=== PATIENT | female | born 1960 | race Caucasian/White ===

== ENCOUNTER 2018-07-01 13:30 | Outpatient (RCR) | payer SELFPAY | END 2018-07-09 23:59 | LOC: NS 13:30 | PROVIDERS: Family Provider Internal Medicine; PCP Internal Medicine | DX: R69 Illness, unspecified (principal) | CPT/HCPCS: 97802; 97803 ==

== ENCOUNTER 2018-07-29 13:58 | Outpatient (RCR) | payer SELFPAY ==
[2014-11-08 06:17] VITALS: BMI 37.2
== END 2018-08-08 23:59 ==
LOC: NS 13:58
PROVIDERS: Family Provider Internal Medicine; PCP Internal Medicine
DX: R69 Illness, unspecified (principal)
CPT/HCPCS: 97803

== ENCOUNTER 2018-08-23 16:15 | Outpatient (RCR) | payer SELFPAY ==
[2014-11-08 06:17] VITALS: BMI 37.2
== END 2018-09-08 23:59 ==
LOC: NS 16:15
PROVIDERS: Family Provider Internal Medicine; PCP Internal Medicine
DX: R69 Illness, unspecified (principal)
CPT/HCPCS: 97803

== ENCOUNTER 2018-09-28 16:00 | Outpatient (RCR) | payer SELFPAY ==
[2014-11-08 06:17] VITALS: BMI 37.2
== END 2018-10-09 23:59 ==
LOC: NS 16:00
PROVIDERS: Family Provider Internal Medicine; PCP Internal Medicine
DX: R69 Illness, unspecified (principal)
CPT/HCPCS: 97803

== ENCOUNTER 2018-10-19 13:59 | Outpatient (RCR) | payer SELFPAY ==
[2014-11-08 06:17] VITALS: BMI 37.2
== END 2018-11-08 23:59 ==
LOC: NS 13:59
PROVIDERS: Family Provider Internal Medicine; PCP Internal Medicine
DX: R69 Illness, unspecified (principal); Z71.3 Dietary counseling and surveillance
CPT/HCPCS: 97803

== ENCOUNTER 2018-12-01 16:00 | Outpatient (RCR) | payer SELFPAY ==
[2018-11-08 10:16] VITALS: BMI 37.2
== END 2018-12-01 23:59 | disposition home or self-care (01) ==
LOC: NS 16:00
PROVIDERS: Family Provider Internal Medicine; PCP Internal Medicine
DX: Z71.3 Dietary counseling and surveillance (principal); R69 Illness, unspecified
CPT/HCPCS: 97803

== ENCOUNTER → 2020-07-10 10:00 | Outpatient (CLI) | payer SELFPAY ==
[2018-11-08 10:16] VITALS: BMI 37.2
--- NOTE | 2020-07-10 10:09 | BI_ITS ---
MAMMOGRAPHY - BILATERAL SCREENING REASON FOR EXAM: Female, 59 years old. Routine annual screening examination. PERTINENT HISTORY: Non-contributory. TECHNIQUE: Digital bilateral breast grupo (3D mammographic acquisition) in the CC and MLO projections. 2-D mediolateral oblique (MLO) and craniocaudad (CC) views of both breasts were obtained. CAD: Full Field Digital Mammography with Computer Added Detection was performed. COMPARISON: Comparison is made with prior outside examination dated 08/24/2015. FINDINGS: Breast Composition: There are scattered areas of fibroglandular density. There are no dominant masses or suspicious calcifications. No other significant abnormalities are identified. There has been no significant change since the prior study. BI/SCRN MAMM (CAD)W/GRUPO BILAT IMPRESSION: Stable bilateral screening mammogram. Yearly follow-up mammogram recommended. (A) ASSESSMENT CATEGORY: BIRADS Category 1: Negative. A letter regarding these results will be sent to the patient by the facility within 30 days. Approximately 10% of breast cancers are not detected by mammography. A normal mammogram should not delay biopsy of a clinically suspicious abnormality. [id number] Electronically Signed: Erik Keyes MD at 11:26 EDT , Service support ,
== END ==
PROVIDERS: PCP Internal Medicine; Referring Provider Clinical Nurse Specialist; Visit Provider Clinical Nurse Specialist
DX: Z12.31 Encounter for screening mammogram for malignant neoplasm of breast (principal)
CPT/HCPCS: 77063; 77067

== ENCOUNTER 2021-10-30 09:35 | Emergency (ER) | payer OTHER, SELFPAY ==
[2021-10-30 09:37] VITALS: BP 158/107; PULSE 109; RESP 18; TEMP 36.6; O2SAT 100; BMI 36.3
[2021-10-30 09:43] VITALS: BP 158/107; PULSE 109; RESP 18; TEMP 36.6; O2SAT 100
--- NOTE | 2021-10-30 10:03 | EDS_ITS ---
HPI History of Present Illness Chief Complaint: Cellulitis Detail of Chief Complaint: Left thigh insect sting or bite Informant: patient Onset/Context/Timing Onset: Days Context: Gradual Onset Timing: Continuous Current Severity: Mild Maximum Severity: Mild Narrative Narrative: 61-year-old female with who states on she was going to the store and felt a bite or sting inside her pants. Kind of scratched it. The next day she realized it was slightly red and swollen consistent with an insect bite or sting. On Thursday got little worse she had a temperature of 99 7. Thursday went to the urgent care they thought it was either allergic reaction and/or infection. They started her on Keflex. It progressively got worse she was then seen a second time the urgent care and they gave her a dose of ceftriaxone and stop the prednisone and had started her on the first visit. She said she really not much better and she want another opinion. Currently she is on clindamycin. She denies any fever or chills. Said otherwise she feels fine and is not very painful. Prior similar symptoms: No Recent Illness/Hospitalization: No PFSH PFSH Medical History H/O achilles tendonitis h/o nephrolithiasis Home Medications Alavert 1 tab PO DAILY 11/03/14 [History Last Taken Unknown] Allergy/AdvReac Type Severity Reaction Status Date / Time No Known Allergies Allergy Verified 10/30/21 09:36 Family History Mother Malignant hypothermia due to anesthesia Heart disease Father Heart disease Surgical History History of lithotripsy Social History current occupational status: employed pets and animals: Yes Smoking Status: Never smoker substance use type: does not use caffeine: Yes seatbelt use: always do you feel safe at home: Yes ROS ROS ED ROS Narrative This denies recent illness. Review of Systems ROS Unobtainable: Denies due to encephalopathy Constitutional Constitutional ED: Denies chills or fever(s) Eyes Eyes: Denies blurry vision ENT ENT ED: Denies ear pain Cardiovascular Cardiovascular: Denies chest pain Respiratory/Chest Respiratory/Chest: Denies cough or dyspnea Gastrointestinal Gastrointestinal: Denies abdominal pain Genitourinary Genitourinary ED: Denies dysuria or hematuria Musculoskeletal Musculoskeletal: Denies arthralgias Integumentary Denies abscess or Abrasions Neurologic Neurologic: Denies headache(s) Psychiatric Psychiatric: Denies anxiety Endocrine Endocrinology: Denies cold intolerance Hematologic/Lymphatic Hematologic/Lymphatic: Reports none Allergic/Immunologic Allergic/Immunologic ED: Denies mouth swelling or tongue swelling EXAM Physical Exam Narrative Exam Narrative: Significant female no acute distress vital signs stable afebrile. H EENT exam unremarkable. Lungs clear. Heart regular rhythm. Abdomen soft nontender. Moving all 4 extremities. Neurovascular intact her right proximal medial thigh has an area about 5 to 6 inches in length about 3 to 4 inches in width that is oval-shaped is consistent with a local allergic reaction to an insect bite or sting. There could also be secondary cellulitis. There is no lymphadenopathy in the right groin. Its not hot. There is no abscess. There is nothing needs to be drained. It is not particularly tender. She has normal range of motion to her hip and knee. Const Vital Signs: 10/30/21 09:37 10/30/21 09:43 Temperature 97.8 F 97.8 F Temperature Source Temporal Temporal Pulse Rate 109 H 109 H Respiratory Rate 18 18 Blood Pressure 158/107 H 158/107 H Blood Pressure Mean 124 124 Pulse Ox 100 100 Oxygen Delivery Method Room Air Room Air Positive well nourished, well developed and obese; Negative for cachectic, contractures or unkempt General Appearance ED: well developed and NAD; Negative for unkempt, cachectic, contractures, cyanotic or diaphoretic Nutritional Appearance: obese; Negative for cachectic HEENT Reports moist mucous membranes Negative for trauma or tenderness Eyes PERRL and EOMs intact bilaterally General Eye ED: Negative for pale conjunctiva or scleral icterus Neck no lymphadenopathy, supple and no JVD General: Negative for tenderness Lymph Lymphatic: Negative for other Chest Wall inspection of chest normal and palpation of chest normal Resp normal respiratory effort and clear to auscultation bilaterally Effort and Inspection: Negative for retractions Auscultation: Negative for rales or rhonchi Cardio regular rate, regular rhythm, S1 normal heart sound, S2 normal heart sound and no murmurs Palpation: Negative for palpable S3 Rate: Negative for bradycardia GI normal to inspection, nondistended, normoactive bowel sounds, non-tender, non- distended and no masses Inspection: Negative for abdominal distention Auscultation: normoactive bowel sounds Palpation: soft; Negative for tender or guarding Bladder / Kidney Exam: No other Back/Spine no CVA tenderness General Back: Negative for CVA tenderness Cervical Spine: Negative for cervical spine tenderness Thoracic Spine / Upper Back: Negative for thoracic spinal tenderness Lumbar Spine / Lower Back: Negative for lumbar spinal tenderness Extremity normal to inspection Extremity Narrative: Except right thigh proximal medial aspect 4 x 6 inch area of local allergic reaction possible secondary cellulitis. No lymphadenopathy in the groin. Normal range of motion. No abscess. Not tender. This may be purely local allergic reaction and could also be secondary cellulitis. General Extremety ED: Yes edema; Negative for tenderness General Extremity: edema Neuro oriented x3 Sensorium / Orientation: alert; Negative for orientation impaired Motor Exam: strength 5/5 throughout Psych mental status grossly normal Appearance: Negative for unkempt Attitude: No agitated Mood & Affect: Negative for depressed, anxious or tearful Skin No no rashes or lesions noted and no wounds Lesions: No lesion noted Rashes: rashes noted Trauma: Negative for abrasion Wounds: Negative for wounds noted MDM MDM MDM Narrative Medical decision making narrative: DenisePatient is a local allergic reaction to some type of insect sting. Be I&D. There could be a secondary infection but there is no lymphadenopathy. There is no abscess. She is already on clindamycin which we will continue in case there is a secondary infection. Otherwise cool compresses Tylenol and Motrin and this should improve if is worsening she will return to have it reevaluated. Discharge Plan Triage Chief Complaint: Cellulitis ED Provider: Huy Gusmna Dx/Rx/DC Orders Clinical Impression: Bites and stings, insect, Cellulitis Instructions: ED Insect Bite Prescriptions: No Action Alavert 1 tab PO DAILY Primary Care Provider: Chantelle Johnson Referrals: Chantelle Johnson MD [Primary Care Provider] - As Needed Activity Restrictions/Additional Instructions: This is consistent with a local allergic reaction to either insect sting or bite. It may be secondarily infected but this could all just be from the reaction. Cool compresses and ice to the area. Tylenol and Motrin for pain. Finish the current antibiotic you are on in case there is an infection. Return if is looking a lot worse, you are feeling worse or develop a fever greater than 101. This should start improving over the next several days. Disposition Disposition: Home, Self Care
== END 2021-10-30 10:23 | disposition home or self-care (01) ==
LOC: ED 10:13
PROVIDERS: Emergency Provider Emergency Medicine; PCP Internal Medicine; Visit Provider Emergency Medicine
DX: L03.116 Cellulitis of left lower limb (principal); E66.9 Obesity, unspecified; S70.362A Insect bite (nonvenomous), left thigh, initial encounter; W57.XXXA Bitten or stung by nonvenomous insect and other nonvenomous arthropods, initial encounter
CPT/HCPCS: 99282

== ENCOUNTER → 2023-08-28 | Outpatient (CLI) | payer MEDICARE, OTHER, SELFPAY ==
--- NOTE | 2023-08-28 14:31 | BI_ITS ---
MAMMOGRAPHY - BILATERAL SCREENING REASON FOR EXAM: Female, 62 years old. Routine annual screening examination. PERTINENT HISTORY: Non-contributory. TECHNIQUE: Digital bilateral breast grupo (3D mammographic acquisition) in the CC and MLO projections. 2-D mediolateral oblique (MLO) and craniocaudad (CC) views of both breasts were obtained. CAD: Full Field Digital Mammography with Computer Added Detection was performed. COMPARISON: Comparison is made with prior study dated July 10, 2020. FINDINGS: Breast Composition: The breasts are almost entirely fatty. There are no dominant masses or suspicious calcifications. No other significant abnormalities are identified. There has been no significant change since the prior study. BI/SCRN MAMM (CAD)W/GRUPO BILAT IMPRESSION: Stable bilateral screening mammogram. Yearly follow-up mammogram recommended. (A) ASSESSMENT CATEGORY: BIRADS Category 1: Negative. A letter regarding these results will be sent to the patient by the facility within 30 days. Approximately 10% of breast cancers are not detected by mammography. A normal mammogram should not delay biopsy of a clinically suspicious abnormality. [id number] Electronically Signed: Erik Keyes MD at 8:23 EDT ,
== END | disposition home or self-care (01) ==
LOC: OPBI 14:29
PROVIDERS: PCP Internal Medicine; Referring Provider Clinical Nurse Specialist; Visit Provider Clinical Nurse Specialist
DX: Z12.31 Encounter for screening mammogram for malignant neoplasm of breast (principal)
CPT/HCPCS: 77063; 77067

== ENCOUNTER 2024-08-24 07:40 | Emergency (ER) | payer MEDICARE, OTHER, SELFPAY ==
[2024-08-24 07:41] VITALS: BP 225/111; PULSE 111; RESP 18; TEMP 36.6; O2SAT 100; BMI 36.7
--- NOTE | 2024-08-24 07:49 | ED.RN ---
Pt also has a cyst on her right flank. pt had a bandaid on it due to leakage. Pt was on an antibiotic since the 3rd.
--- NOTE | 2024-08-24 07:49 | ED.RN ---
Pt also has a cyst on her right flank. pt had a bandaid on it due to leakage. Pt was on an antibiotic since the 3rd.
--- NOTE | 2024-08-24 07:53 | ED.VIS.BACK ---
HPI History of Present Illness Chief Complaint: Flank Pain Detail of Chief Complaint: Left buttocks pain not flank pain Informant: patient Onset/Context/Timing Onset: Weeks (2 weeks ago, August 10) Context: Sudden Onset Injury: - (None) Timing: Continuous Quality: Dull and Aching Location: Buttock (Left) Current Severity: Mild Maximum Severity: Severe Worsened by: improves with Movement, Ambulation, Bending and Lifting Relieved by: Nothing Associated Symptoms Associated Symptoms: - (No saddle paresthesia or anesthesia.); Negative for Numbness, Tingling, Radiation to Right Leg, Radiation to Left Leg, Fever, Abdominal Pain, Dysuria, Unable to Ambulate, Unable to Transfer, Urinary Retention, Urinary Incontinence, Constipation or Fecal Incontinence Narrative Narrative: Patient is a 63-year-old woman. She has history of hypertension. In collaboration with her doctor she is supposed no medication since her systolic is in the mid 130s. She presents by ambulance because of worsening left buttocks pain. She denies bowel or bladder dysfunction. She denies saddle paresthesia or anesthesia. She denies pain radiating down either leg. She denies foot drop. She took meloxicam this morning. She states she was unable to walk more than a couple steps to drive herself and reason she contacted ambulance. She denies fever or chills. She denies night sweats. Denies weight gain or weight loss. She denies any recent dental procedure or any type of procedure. She was placed on an antibiotic for a right buttocks abscess that spontaneously drained. The pain is exacerbated by movement. She has no history of degenerative disc disease. She has no history of herniated disc. She has not noted a rash on the left side. She has no history of diabetes, peptic ulcer disease or renal disease other than kidney stone. She has no allergy to NSAIDs. She states she took meloxicam this morning. Prior similar symptoms: No Recent Illness/Hospitalization: Yes [facility] Medical History Kidney stones h/o nephrolithiasis H/O achilles tendonitis Home Medications ?Medication ?Instructions ?Recorded ?Last Taken ?Type Alavert 1 tab PO DAILY 11/03/14 Unknown History meloxicam 15 mg tablet 15 mg PO DAILY 08/24/24 Unknown History methocarbamol 750 mg tablet 750 mg PO TID 08/24/24 Unknown History oxycodone-acetaminophen 5 mg-325 1 tab PO Q6H PRN PRN Pain 3 days 08/24/24 Unknown Rx mg tablet #12 TABLETS Allergy/AdvReac Type Severity Reaction Status Date / Time No Known Allergies Allergy Verified 08/24/24 07:46 Family History Mother Malignant hypothermia due to anesthesia Heart disease Father Heart disease Surgical History History of lithotripsy Social History current occupational status: employed pets and animals: Yes Smoking Status: Never smoker substance use type: does not use caffeine: Yes seatbelt use: always do you feel safe at home: Yes ROS ROS ED Constitutional Constitutional ED: Denies chills, fever(s), subjective, sweats or weight loss Eyes Eyes: Denies blurry vision, change in vision or diplopia ENT ENT ED: Denies ear pain, rhinorrhea or sore throat Gastrointestinal Gastrointestinal: Denies abdominal pain, diarrhea, nausea or vomiting Genitourinary Genitourinary ED: Denies dysuria, hematuria or urinary frequency Musculoskeletal Musculoskeletal: Reports back pain; Denies arthralgias or myalgias Integumentary Reports rash Neurologic Neurologic: Denies headache(s), paresthesias or weakness Endocrine Endocrinology: Denies cold intolerance or heat intolerance Hematologic/Lymphatic Hematologic/Lymphatic: Reports other Details: Patient is on no anticoagulant or antithrombotic. ; Denies easy bleeding or easy bruising EXAM Physical Exam Const Vital Signs: 08/24/24 07:41 08/24/24 08:48 08/24/24 09:43 Temperature 97.9 F Temperature Source Oral Pulse Rate 111 H 93 93 Respiratory Rate 18 18 16 Blood Pressure 225/111 H 206/113 H 200/98 H Blood Pressure Mean 149 144 132 Pulse Ox 100 97 98 Oxygen Delivery Method Room Air Room Air Room Air Positive well nourished and well developed Constitutional Narrative: BMI is 36.7. General Appearance ED: well developed HEENT Reports moist mucous membranes HEENT Narrative: Head is atraumatic and normocephalic. Ears normal. Nares patent. Eyes PERRL and EOMs intact bilaterally General Eye ED: Negative for scleral icterus Neck no lymphadenopathy, supple and no JVD Resp normal respiratory effort and clear to auscultation bilaterally Cardio regular rate and regular rhythm GI normal to inspection, nondistended, normoactive bowel sounds, soft to palpation, non-tender and non-distended Back/Spine normal to inspection and no thoracic nor lumbar tenderness Back/Spine Narrative: Patient has pain left buttocks area near the posterior superior iliac spine. There are no skin lesions noted. The area over the right buttocks has some discoloration. There are 2 openings in the skin where the abscess apparently drained since the Band-Aid is saturated. There is no induration. There is no warmth. Thoracic Spine / Upper Back: Negative for paraspinal muscle tenderness Lumbar Spine / Lower Back: ROM limited and straight leg raise negative bilaterally Extremity normal to inspection and no clubbing, cyanosis or edema Extremity Narrative: PT and DP pulse are palpable and symmetric. Neuro oriented x3 and no sensory deficits noted Neuro Narrative: Sensation L3-S1 is intact. EHL is intact. Bilateral 5 strength dorsi and plantarflexion of her foot. Presently patient is unable to stand to assess gait. Deep Tendon Reflexes: Rt Patellar (L4): 3+, Lt Patellar (L4): 3+, Rt Ankle (S1): 3+ and Lt Ankle (S1): 3+ Deep Tendon Reflexes Back: Rt Patellar (L4): 3+, Lt Patellar (L4): 3+, Rt Ankle (S1): 3+ and Lt Ankle (S1): 3+ Plantar Reflex: Downgoing: bilateral (There is no clonus noted either.) Psych mental status grossly normal Skin no rashes or lesions noted and No no wounds Skin Narrative: Previously described regarding the abscess that spontaneously drained right buttocks. MDM MDM MDM Narrative Medical decision making narrative: Patient with markedly elevated blood pressure 225/111 with a heart rate of 111. Suspect this is due to pain. Will medicate patient and reassess. Since patient has known history of hypertension presently on no antihypertensive meds we will obtain BMP to assess renal function especially since she is on NSAID and UA to assess for proteinuria hematuria and specific gravity. Patient was medicated with morphine for her pain. History & Record Review Additional record(s) reviewed:: Prior ED visit (Last ER visit was October 2021. She was seen for insect bites and stings. She was seen in January 2019 for elevated blood pressure.) Lab Data Labs: Laboratory Results - last 24 hr 08/24/24 08/24/24 08:15 10:54 Sodium 139 Potassium 3.8 Chloride 105 Carbon Dioxide 21.8 Anion Gap 12 BUN 16 Creatinine 0.64 L Estim Creat Clear Calc 90.91 Est GFR (MDRD) Non-Af 98 BUN/Creatinine Ratio 25.2 H Glucose 115 H Calcium 9.5 Urine Color Yellow Urine Clarity Sl. Cloudy Urine pH 7.0 Ur Specific [place] 1.010 Urine Protein 30 H Urine Glucose (UA) Normal Urine Ketones Negative Urine Occult Blood 10 H Urine Nitrite Negative Urine Bilirubin Negative Urine Urobilinogen Normal Ur Leukocyte Esterase 25 H Treatment and Re-Evaluation Narrative: Patient received second dose of morphine. She was reassessed after second dose of morphine 1106. Her blood pressure still elevated but has improved. Suspect this is related to her pain. Plan is discharge to home with prescription for Percocet. All of her questions were answered. Discharge Plan Triage Chief Complaint: Flank Pain ED Provider: Payam Murray Dx/Rx/DC Orders Clinical Impression: Pain of back and left lower extremity, Elevated blood pressure reading with diagnosis of hypertension, Hematuria with proteinuria Instructions: ED Back and Neck Pain, General Prescriptions: New oxycodone-acetaminophen 5-325 mg tablet 1 tab PO Q6H PRN PRN (Reason: Pain) 3 Days Qty: 12 0RF No Action Alavert 1 tab PO DAILY meloxicam 15 mg tablet 15 mg PO DAILY methocarbamol 750 mg tablet 750 mg PO TID Primary Care Provider: Chantelle Johnson Referrals: Chantelle Johnson MD [Primary Care Provider] - Activity Restrictions/Additional Instructions: If you are unable to urinate, loss of bowel control, pain going down your left lower extremity return to the emergency room. You should have your blood pressure rechecked in 1 to 2 weeks. Print Language: Yoruba Disposition Disposition: Home, Self Care
[2024-08-24 08:48] VITALS: BP 206/113; PULSE 93; RESP 18; O2SAT 97
[2024-08-24 08:48] LABS: Anion Gap 12 (5-15); BUN 16 mg/dL (4-19); BUN/Creat Ratio 25.2 RATIO (10-20); Calcium,Total 9.5 mg/dL (7.6-11.0); Carbon Dioxide 21.8 mmol/L (21.0-32.0); Chloride 105 mmol/L (98-108); Estimated Creatinine Clearance 90.91 ml/min (50-250); Glucose 115 mg/dL (70-99); Potassium 3.8 mmol/L (3.3-5.1)
[2024-08-24 09:43] VITALS: BP 200/98; PULSE 93; RESP 16; O2SAT 98
[2024-08-24 11:05] LABS: Color, Urine Yellow (Yellow); Glucose, Dipstick Normal (Normal); Ketone-Dipstick Negative (Negative); Leukocyte Esterase-Dipstick 25 /ul (Negative); Nitrite-Dipstick Negative (Negative); Occult Blood-Urine 10 /ul (Negative); Protein-Dipstick 30 mg/dl (Negative); Specific Gravity, Urine 1.010 (1.002-1.030); Urine Bilirubin Dipstick Negative (Negative)
[2024-08-24 11:21] VITALS: BP 179/87; PULSE 96; RESP 17; TEMP 36.6; O2SAT 92
== END 2024-08-24 11:31 | disposition home or self-care (01) ==
PROVIDERS: Emergency Provider Emergency Medicine; PCP Internal Medicine; Visit Provider Emergency Medicine
DX: M54.9 Dorsalgia, unspecified (principal); I10 Essential (primary) hypertension; R31.9 Hematuria, unspecified; R80.9 Proteinuria, unspecified
CPT/HCPCS: 80048; 81002; 96374; 96375; 96376; 99285; A4216; J2405

== ENCOUNTER → 2024-09-22 | Outpatient (CLI) | payer MEDICARE, OTHER, SELFPAY ==
--- NOTE | 2024-09-22 14:23 | BD_ITS ---
PROCEDURE: DEXA BONE DENSITY STUDY 09/22/2024 REASON FOR EXAM: F, age 64 y/o . Postmenopausal. TECHNIQUE: DEXA BONE DENSITY STUDY COMPARISON: None FINDINGS: BMD and T-SCORES Lumbar spine: 0.932 g/cm2, T-score -1.0 Levels: L1 through L4 Left femoral neck: 0.774 g/cm2, T-score -0.7 Femoral neck comparison data not recommended for monitoring change. Left total hip: 0.938 g/cm2, T-score 1.2 Right femoral neck: 0.700 g/cm2, T-score -1.3 Femoral neck comparison data not recommended for monitoring change. Right total hip: 0.916 g/cm2, T-score -0.2 The World Health Organization has defined the following categories based on bone density: Normal bone density: T-score equal to or greater than -1.0 Osteopenia: T-score between -1.0 and -2.5 Osteoporosis: T-score equal to or less than -2.5 The patient does meet the pharmacological treatment recommendations for prevention of osteoporosis. BD/Dexa Bone Density Study IMPRESSION: OSTEOPENIA. Recommend follow-up as clinically warranted. Reading Location: [place] [id number]
--- NOTE | 2024-09-22 14:23 | BI_ITS ---
EXAM: SCRN MAMM (CAD)W/GRUPO BILAT DATE: 09/22/2024 CLINICAL HISTORY: F, Age 64 y/o , [place] No family history. TECHNIQUE: SCRN MAMM (CAD)W/GRUPO BILAT COMPARISON: Prior exam(s) dated August 28, 2023.. FINDINGS: TISSUE DENSITY: The breasts are almost entirely fatty. Bilateral Breast Mammographic Findings: No significant masses, calcifications or other abnormalities are identified. No suspicious masses, areas of developing architectural distortion, or suspicious calcifications. There has been no significant interval change. BI/SCRN MAMM (CAD)W/GRUPO BILAT IMPRESSION: Stable examination. OVERALL FINAL ASSESSMENT BI-RADS 1: NEGATIVE. RECOMMENDATION: Routine annual follow-up in 1 Year A letter with findings and recommendations will be mailed to the patient. Reading Location: [place] [id number]
== END | disposition home or self-care (01) ==
LOC: OPBD 14:22
PROVIDERS: PCP Internal Medicine; Referring Provider Internal Medicine; Visit Provider Internal Medicine
DX: Z12.31 Encounter for screening mammogram for malignant neoplasm of breast (principal); Z78.0 Asymptomatic menopausal state
CPT/HCPCS: 77063; 77067; 77080